=== PATIENT | female | born 2000 | race Caucasian/White ===

== ENCOUNTER 2018-06-08 20:04 | Emergency (ER) | payer OTHER ==
--- NOTE | 2018-06-08 22:06 | ED Physician Documentation ---
PD HPI URI - Stated complaint Stated Complaint: FEVER/FATIGUE - Chief complaint Chief Complaint: General - History obtained from History obtained from: Patient - History of Present Illness Timing - onset: Yesterday Timing duration: Days (1-2) Timing details: Abrupt onset, Still present Associated symptoms: Fever, Chills, Nasal congestion, Dry cough, Other (muscle aches.). No: Sweats Contributing factors: No: Sick contact, Travel, Immunocompromised Similar symptoms before: Diagnosis (uti) Recently seen: Not recently seen Review of Systems Constitutional: reports: Fever, Chills, Myalgias Eyes: denies: Loss of vision, Decreased vision Ears: denies: Ear pain Nose: reports: Congestion. denies: Rhinorrhea / runny nose Throat: reports: Sore throat Cardiac: denies: Chest pain / pressure Respiratory: denies: Dyspnea : denies: Dysuria Skin: denies: Rash, Lesions Musculoskeletal: reports: Back pain PD PAST MEDICAL HISTORY - Past Medical History Past Medical History: No - Past Surgical History Past Surgical History: No - Present Medications Home Medications: Ambulatory Orders Medication Instructions Recorded Confirmed Benzonatate [Tessalon Perle] 100 mg PO TID PRN #20 capsule 06/08/18 Cetirizine [ZyrTEC] 10 mg PO DAILY #15 tablet 06/08/18 Dexamethasone [Decadron] 4 mg PO DAILY #5 tablet 06/08/18 Naproxen 500 mg PO BID #20 tablet 06/08/18 - Allergies Allergies/Adverse Reactions: Allergies Allergy/AdvReac Type Severity Reaction Status Date / Time No Known Drug Allergies Allergy Verified 06/08/18 20:15 - Social History Does the pt smoke?: No Smoking Status: Never smoker PD ED PE NORMAL - Vitals Vital signs reviewed: Yes - General General: Alert and oriented X 3, No acute distress, Well developed/nourished - HEENT HEENT: Pharynx benign, Dentition benign - Neck Neck: Supple, no meningeal sign, No bony TTP, No JVD, No bruit, Other - Cardiac Cardiac: RRR, No murmur Results - Vitals Vitals: Oxygen O2 Source Nasal cannula - Labs Labs: Laboratory Tests 06/08/18 20:18 Influenza A (Rapid) Negative Influenza B (Rapid) Negative Departure - Departure Disposition: Home, Self Care Clinical Impression: Upper respiratory infection Qualifiers: URI type: unspecified URI Qualified Code(s): J06.9 - Acute upper respiratory infection, unspecified Condition: Stable Record reviewed to determine appropriate education?: Yes Instructions: ED Upper Resp Infec No Abx Tx Follow-Up: [facility] [Provider Group] Prescriptions: Benzonatate [Tessalon Perle] 100 mg PO TID PRN #20 capsule PRN Reason: Cough Cetirizine [ZyrTEC] 10 mg PO DAILY #15 tablet Dexamethasone [Decadron] 4 mg PO DAILY #5 tablet Naproxen 500 mg PO BID #20 tablet Comments: Drink lots of fluids. Decadron anti-inflammatory daily for the next for 5 days. Naproxen and also anti-inflammatory twice daily as needed for fevers and pains. Tessalon if needed for cough. Use cetirizine for congestion. These are typically viral illnesses and will last 4-5 days even up to week and then the cough can last for a couple weeks after. Recheck if not improved over that timeframe. Discharge Date/Time: 06/08/18 23:10
[2018-06-08] MEDS ORDERED: DEXAMETHASONE 10 MG/ML VIAL PO STA (22:21)
[2018-06-08] MEDS ORDERED: IBUPROFEN 600 MG TABLET PO STA (22:21)
[2018-06-08] MEDS ORDERED: BENZONATATE 100 MG CAPSULE PO STA (22:21)
[2018-06-08] MEDS ORDERED: CETIRIZINE 10 MG TABLET PO STA (22:21)
[2018-06-08 23:04] VITALS: BP 107/72
== END 2018-06-08 23:10 | disposition home or self-care (01) ==
LOC: ED 20:04
DX: J06.9 Acute upper respiratory infection, unspecified (principal)
CPT/HCPCS: 87275; 87276; 99283; A9270